=== PATIENT | female | born 1965 | race Caucasian/White ===

== ENCOUNTER 2016-08-15 20:20 | Emergency (ER) | payer OTHER ==
[~2016-08-15 20:20] MED LIST: BACITRACIN TP; BENADRYL25 MG PO; CALCIUM 600 +1 EAC7 PO; CELEXA20 MG PO; COLACE100 MG PO; COREG25 MG PO; CYANOCOBAL1000 MCG/M INJ; FOLIC ACID1 MG PO; GABAPENTIN800 MG PO; IRON325 M1 PO; JUVEN PACKET1 EACH PO; KLONOPIN1 MG PO; LACTINEX CHEWA1 EACH PO; LOVENOX40 MG/0.4 SC; MAGOX 400400 MG PO; MILK OF MA400 MG/5 M PO; MS CONTIN30 MG PO; MULTIVITAMINS1 EAC2 PO; NYSTOP60 GM TOP; PANTOPRAZOLE SO40 MG PO; PERCOCET 10-321 EACH PO; SENSI CARE PET113 GM TOP
[2016-08-15 21:58] LABS: BASO % 0.5 % (0.1-1.2); EOS # 0.5 10_X3_uL (0.0-0.4); EOS % 5.4 % (0.7-5.8); GRAN # 5.8 10_X3_uL (1.6-6.1); GRAN % 68.5 % (34.0-71.1); HEMATOCRIT 30.5 % (34-45); HEMOGLOBIN 9.8 g/dL (11.2-15.7); LYMPH # 1.7 10_X3_uL (1.2-3.7); LYMPH % 20.1 % (19.3-51.7); MEAN CORPUSCULAR HEMOGLOBIN 28.2 pg (27.0-33.0); MEAN CORPUSCULAR HGB CONC 32.1 g/dL (32.0-36.0); MEAN CORPUSCULAR VOLUME 87.9 fL (79-95); MEAN PLATELET VOLUME 9.2 fl (7.5-11.5); MONO # 0.5 10_X3_uL (0.2-0.9); MONO % 5.5 % (4.7-12.5); PLATELET COUNT 282 x10_3/uL (182-369); RED BLOOD COUNT 3.47 x10_6/uL (3.9-5.2); RED CELL DISTRIBUTION WIDTH 17.3 % (11.7-14.4); WHITE BLOOD COUNT 8.4 x10_3/uL (4.0-10.0)
[2016-08-15 22:12] LABS: ALBUMIN 3.4 gm/dL (3.4-5.0); ALKALINE PHOSPHATASE 327 U/L (50-136); ALT/SGPT 44 U/L (3.5-33.9); AST/SGOT 50 U/L (7.04-26.96); BILIRUBIN,TOTAL 0.38 mg/dL (0.0-1.0); BLOOD UREA NITROGEN 9 mg/dL (7-18); CALCIUM 8.6 mg/dL (8.7-10.7); CARBON DIOXIDE 25 mmol/L (21-32); CREATININE < 0.5 mg/dL (0.6-1.3); GLUCOSE,RANDOM 116 mg/dL (70-99); POTASSIUM 3.9 mmol/L (3.5-5.1); SODIUM 139 mmol/L (136-145); TOTAL PROTEIN 7.1 gm/dL (6.4-8.2)
== END 2016-08-16 00:15 | disposition home or self-care (01) ==
LOC: ER 20:20
PROVIDERS: Emergency Medicine
DX: L03.115 Cellulitis of right lower limb (principal); S81.001A Unspecified open wound, right knee, initial encounter; Z98.890 Other specified postprocedural states; Z86.14 Personal history of Methicillin resistant Staphylococcus aureus infection; Z86.19 Personal history of other infectious and parasitic diseases; Z89.222 Acquired absence of left upper limb above elbow; F17.210 Nicotine dependence, cigarettes, uncomplicated; Z88.2 Allergy status to sulfonamides; Z88.8 Allergy status to other drugs, medicaments and biological substances; Z79.899 Other long term (current) drug therapy
CPT/HCPCS: 36415; 73552; 73590; 73610; 80053; 85025; 96372; 99283-25; 99284

== ENCOUNTER 2016-11-12 12:26 | Inpatient (IN) | payer OTHER ==
[~2016-11-12] VITALS: Ht 165.1 cm; Wt 123.0 kg
[2016-11-12 13:26] LABS: BASO % 0.1 % (0.1-1.2); EOS % 0.1 % (0.7-5.8); GRAN # 22.8 10_X3_uL (1.6-6.1); GRAN % 91.6 % (34.0-71.1); HEMATOCRIT 34.4 % (34-45); HEMOGLOBIN 11.8 g/dL (11.2-15.7); LYMPH # 0.9 10_X3_uL (1.2-3.7); LYMPH % 3.4 % (19.3-51.7); MEAN CORPUSCULAR HEMOGLOBIN 29.4 pg (27.0-33.0); MEAN CORPUSCULAR HGB CONC 34.3 g/dL (32.0-36.0); MEAN CORPUSCULAR VOLUME 85.8 fL (79-95); MEAN PLATELET VOLUME 10.1 fl (7.5-11.5); MONO # 1.2 10_X3_uL (0.2-0.9); MONO % 4.8 % (4.7-12.5); PLATELET COUNT 246 x10_3/uL (182-369); RED BLOOD COUNT 4.01 x10_6/uL (3.9-5.2); RED CELL DISTRIBUTION WIDTH 14.7 % (11.7-14.4)
[2016-11-12 13:33] LABS: WHITE BLOOD COUNT 24.9 x10_3/uL (4.0-10.0)
[2016-11-12 13:36] LABS: URINE BILIRUBIN NEGATIVE (NEGATIVE); URINE BLOOD 2+ (NEGATIVE); URINE GLUCOSE (UA) NORMAL (NORMAL); URINE KETONE NEGATIVE (NEGATIVE); URINE LEUKOCYTE ESTERASE NEGATIVE (NEGATIVE); URINE NITRATE NEGATIVE (NEGATIVE); URINE PROTEIN 2+ (NEGATIVE); UROBILINOGEN NORMAL mg/dL (<1.0)
[2016-11-12 13:53] LABS: ALKALINE PHOSPHATASE 173 U/L (50-136); ALT/SGPT 17 U/L (3.5-33.9); AST/SGOT 23 U/L (7.04-26.96); BILIRUBIN,TOTAL 0.51 mg/dL (0.0-1.0); BLOOD UREA NITROGEN 11 mg/dL (7-18); CALCIUM 8.3 mg/dL (8.7-10.7); CARBON DIOXIDE 18 mmol/L (21-32); CREATININE 0.5 mg/dL (0.6-1.3); GLUCOSE,RANDOM 141 mg/dL (70-99); SODIUM 129 mmol/L (136-145); TOTAL PROTEIN 7.3 gm/dL (6.4-8.2)
[2016-11-12 13:57] LABS: URINE RBC 0-5 /[HPF] (0-2); URINE WBC 0-5 /[HPF] (0-5)
[2016-11-12 13:58] LABS: URINE BACTERIA TRACE (NONE SEEN); URINE SQUAMOUS EPITHELIAL CELL 0-10 /[HPF] (NONE SEEN)
[2016-11-12 14:01] LABS: POTASSIUM 2.8 mmol/L (3.5-5.1)
[2016-11-12 15:31] LABS: ERYTHROCYTE SEDIMENTATION RATE 80 mm/hr (0-20)
[2016-11-12 22:29] LABS: ARTERIAL BLD GAS O2 SATURATION 96.8 % (94-98); ARTERIAL BLOOD GAS HCO3 22.8 mmol/L (22-26); ARTERIAL BLOOD GAS PCO2 31.7 mmHg (32-45); ARTERIAL BLOOD GAS pH 7.47 (7.35-7.45)
[2016-11-13 06:49] LABS: BASO % 0.1 % (0.1-1.2); EOS # 0.1 10_X3_uL (0.0-0.4); EOS % 0.4 % (0.7-5.8); GRAN # 20.2 10_X3_uL (1.6-6.1); GRAN % 91.3 % (34.0-71.1); HEMATOCRIT 28.2 % (34-45); HEMOGLOBIN 9.6 g/dL (11.2-15.7); LYMPH # 0.8 10_X3_uL (1.2-3.7); LYMPH % 3.7 % (19.3-51.7); MEAN CORPUSCULAR HEMOGLOBIN 29.4 pg (27.0-33.0); MEAN CORPUSCULAR VOLUME 86.5 fL (79-95); MEAN PLATELET VOLUME 9.8 fl (7.5-11.5); MONO % 4.5 % (4.7-12.5); PLATELET COUNT 327 x10_3/uL (182-369); RED BLOOD COUNT 3.26 x10_6/uL (3.9-5.2); RED CELL DISTRIBUTION WIDTH 14.2 % (11.7-14.4)
[2016-11-13 07:04] LABS: BLOOD UREA NITROGEN 8 mg/dL (7-18); CALCIUM 7.9 mg/dL (8.7-10.7); CARBON DIOXIDE 22 mmol/L (21-32); CREATININE 0.5 mg/dL (0.6-1.3); GLUCOSE,RANDOM 109 mg/dL (70-99); SODIUM 137 mmol/L (136-145)
[2016-11-13 07:13] LABS: POTASSIUM 2.5 mmol/L (3.5-5.1)
[2016-11-13 07:14] LABS: WHITE BLOOD COUNT 22.1 x10_3/uL (4.0-10.0)
[2016-11-13 20:21] LABS: URINE BILIRUBIN NEGATIVE (NEGATIVE); URINE BLOOD TRACE (NEGATIVE); URINE GLUCOSE (UA) NORMAL (NORMAL); URINE KETONE NEGATIVE (NEGATIVE); URINE LEUKOCYTE ESTERASE TRACE (NEGATIVE); URINE NITRATE NEGATIVE (NEGATIVE); URINE PROTEIN 1+ (NEGATIVE); UROBILINOGEN NORMAL mg/dL (<1.0)
[2016-11-13 20:27] LABS: URINE RBC 0-5 /[HPF] (0-2); URINE WBC 0-5 /[HPF] (0-5)
[2016-11-13 20:33] LABS: MAGNESIUM 1.6 mg/dL (1.8-2.4); POTASSIUM 3.2 mmol/L (3.5-5.1)
[2016-11-14 06:46] LABS: BASO % 0.2 % (0.1-1.2); EOS # 0.4 10_X3_uL (0.0-0.4); EOS % 2.2 % (0.7-5.8); GRAN # 16.3 10_X3_uL (1.6-6.1); GRAN % 86.6 % (34.0-71.1); HEMOGLOBIN 9.7 g/dL (11.2-15.7); LYMPH # 1.3 10_X3_uL (1.2-3.7); LYMPH % 6.6 % (19.3-51.7); MEAN CORPUSCULAR HEMOGLOBIN 29.2 pg (27.0-33.0); MEAN CORPUSCULAR HGB CONC 33.4 g/dL (32.0-36.0); MEAN CORPUSCULAR VOLUME 87.3 fL (79-95); MEAN PLATELET VOLUME 9.6 fl (7.5-11.5); MONO # 0.8 10_X3_uL (0.2-0.9); MONO % 4.4 % (4.7-12.5); PLATELET COUNT 323 x10_3/uL (182-369); RED BLOOD COUNT 3.32 x10_6/uL (3.9-5.2); RED CELL DISTRIBUTION WIDTH 14.9 % (11.7-14.4); WHITE BLOOD COUNT 18.9 x10_3/uL (4.0-10.0)
[2016-11-14 07:16] LABS: ALBUMIN 2.4 gm/dL (3.4-5.0); ALKALINE PHOSPHATASE 145 U/L (50-136); ALT/SGPT 30 U/L (3.5-33.9); AST/SGOT 50 U/L (7.04-26.96); BILIRUBIN,TOTAL 0.22 mg/dL (0.0-1.0); BLOOD UREA NITROGEN 9 mg/dL (7-18); CALCIUM 7.9 mg/dL (8.7-10.7); CARBON DIOXIDE 20 mmol/L (21-32); CREATININE 0.6 mg/dL (0.6-1.3); GLUCOSE,RANDOM 102 mg/dL (70-99); POTASSIUM 3.7 mmol/L (3.5-5.1); SODIUM 136 mmol/L (136-145); TOTAL PROTEIN 6.4 gm/dL (6.4-8.2)
[2016-11-15 07:16] LABS: HEMATOCRIT 29.2 % (34-45); HEMOGLOBIN 9.4 g/dL (11.2-15.7); MEAN CORPUSCULAR HEMOGLOBIN 28.7 pg (27.0-33.0); MEAN CORPUSCULAR HGB CONC 32.2 g/dL (32.0-36.0); MEAN CORPUSCULAR VOLUME 89.3 fL (79-95); MEAN PLATELET VOLUME 9.4 fl (7.5-11.5); RED BLOOD COUNT 3.27 x10_6/uL (3.9-5.2); RED CELL DISTRIBUTION WIDTH 14.8 % (11.7-14.4); WHITE BLOOD COUNT 14.7 x10_3/uL (4.0-10.0)
[2016-11-15 07:23] LABS: ALBUMIN 2.4 gm/dL (3.4-5.0); ALKALINE PHOSPHATASE 338 U/L (50-136); ALT/SGPT 35 U/L (3.5-33.9); AST/SGOT 72 U/L (7.04-26.96); BILIRUBIN,TOTAL 0.27 mg/dL (0.0-1.0); CARBON DIOXIDE 22 mmol/L (21-32); CREATININE 0.6 mg/dL (0.6-1.3); GLUCOSE,RANDOM 107 mg/dL (70-99); MAGNESIUM 1.6 mg/dL (1.8-2.4); POTASSIUM 3.7 mmol/L (3.5-5.1); SODIUM 138 mmol/L (136-145); TOTAL PROTEIN 6.2 gm/dL (6.4-8.2)
[2016-11-15 07:24] LABS: BLOOD UREA NITROGEN 5 mg/dL (7-18)
[2016-11-16 04:46] LABS: HEMATOCRIT 29.5 % (34-45); HEMOGLOBIN 9.7 g/dL (11.2-15.7); MEAN CORPUSCULAR HGB CONC 32.9 g/dL (32.0-36.0); MEAN CORPUSCULAR VOLUME 88.3 fL (79-95); MEAN PLATELET VOLUME 9.1 fl (7.5-11.5); RED BLOOD COUNT 3.34 x10_6/uL (3.9-5.2); RED CELL DISTRIBUTION WIDTH 14.9 % (11.7-14.4); WHITE BLOOD COUNT 12.9 x10_3/uL (4.0-10.0)
[2016-11-16 05:04] LABS: ALBUMIN 2.5 gm/dL (3.4-5.0); ALKALINE PHOSPHATASE 337 U/L (50-136); ALT/SGPT 28 U/L (3.5-33.9); AST/SGOT 41 U/L (7.04-26.96); BILIRUBIN,TOTAL 0.37 mg/dL (0.0-1.0); BLOOD UREA NITROGEN 6 mg/dL (7-18); CARBON DIOXIDE 23 mmol/L (21-32); CREATININE 0.5 mg/dL (0.6-1.3); GLUCOSE,RANDOM 106 mg/dL (70-99); POTASSIUM 3.6 mmol/L (3.5-5.1); SODIUM 137 mmol/L (136-145); TOTAL PROTEIN 6.6 gm/dL (6.4-8.2)
[2016-11-17 05:24] LABS: HEMATOCRIT 30.5 % (34-45); MEAN CORPUSCULAR HEMOGLOBIN 28.9 pg (27.0-33.0); MEAN CORPUSCULAR HGB CONC 32.8 g/dL (32.0-36.0); MEAN CORPUSCULAR VOLUME 88.2 fL (79-95); MEAN PLATELET VOLUME 9.1 fl (7.5-11.5); RED BLOOD COUNT 3.46 x10_6/uL (3.9-5.2); RED CELL DISTRIBUTION WIDTH 14.7 % (11.7-14.4); WHITE BLOOD COUNT 10.9 x10_3/uL (4.0-10.0)
[2016-11-17 05:36] LABS: ALBUMIN 2.3 gm/dL (3.4-5.0); ALKALINE PHOSPHATASE 321 U/L (50-136); ALT/SGPT 21 U/L (3.5-33.9); AST/SGOT 22 U/L (7.04-26.96); BILIRUBIN,TOTAL 0.34 mg/dL (0.0-1.0); CALCIUM 8.2 mg/dL (8.7-10.7); CARBON DIOXIDE 26 mmol/L (21-32); CREATININE < 0.5 mg/dL (0.6-1.3); GLUCOSE,RANDOM 115 mg/dL (70-99); POTASSIUM 3.8 mmol/L (3.5-5.1); SODIUM 138 mmol/L (136-145); TOTAL PROTEIN 6.8 gm/dL (6.4-8.2)
[2016-11-17 05:37] LABS: BLOOD UREA NITROGEN 4 mg/dL (7-18)
[2016-11-18 06:40] LABS: BASO % 0.5 % (0.1-1.2); EOS # 0.5 10_X3_uL (0.0-0.4); EOS % 5.3 % (0.7-5.8); GRAN # 5.7 10_X3_uL (1.6-6.1); GRAN % 65.6 % (34.0-71.1); HEMATOCRIT 31.1 % (34-45); LYMPH # 1.8 10_X3_uL (1.2-3.7); LYMPH % 20.4 % (19.3-51.7); MEAN CORPUSCULAR HEMOGLOBIN 28.9 pg (27.0-33.0); MEAN CORPUSCULAR HGB CONC 32.2 g/dL (32.0-36.0); MEAN CORPUSCULAR VOLUME 89.9 fL (79-95); MEAN PLATELET VOLUME 9.2 fl (7.5-11.5); MONO # 0.7 10_X3_uL (0.2-0.9); MONO % 8.2 % (4.7-12.5); PLATELET COUNT 409 x10_3/uL (182-369); RED BLOOD COUNT 3.46 x10_6/uL (3.9-5.2); RED CELL DISTRIBUTION WIDTH 14.7 % (11.7-14.4); WHITE BLOOD COUNT 8.6 x10_3/uL (4.0-10.0)
[2016-11-18 06:57] LABS: ALBUMIN 2.4 gm/dL (3.4-5.0); ALKALINE PHOSPHATASE 264 U/L (50-136); ALT/SGPT 14 U/L (3.5-33.9); AST/SGOT 14 U/L (7.04-26.96); BILIRUBIN,TOTAL 0.26 mg/dL (0.0-1.0); BLOOD UREA NITROGEN 5 mg/dL (7-18); CALCIUM 8.3 mg/dL (8.7-10.7); CARBON DIOXIDE 26 mmol/L (21-32); CREATININE 0.5 mg/dL (0.6-1.3); GLUCOSE,RANDOM 134 mg/dL (70-99); POTASSIUM 3.8 mmol/L (3.5-5.1); SODIUM 134 mmol/L (136-145); TOTAL PROTEIN 6.9 gm/dL (6.4-8.2)
== END 2016-11-19 12:24 | disposition home or self-care (01) | DRG 872 ==
LOC: ER 12:26 → MS 15:24
PROVIDERS: Internal Medicine; ADMIT Family Medicine
PROC: 05H533Z Insertion of Infusion Device into Right Subclavian Vein, Percutaneous Approach (ICD-10-PCS; principal; 2016-11-17)
DX: A41.9 Sepsis, unspecified organism (principal); L03.115 Cellulitis of right lower limb; E72.20 Disorder of urea cycle metabolism, unspecified; K52.9 Noninfective gastroenteritis and colitis, unspecified; R19.7 Diarrhea, unspecified; M79.3 Panniculitis, unspecified; E87.6 Hypokalemia; D64.9 Anemia, unspecified; Z89.202 Acquired absence of left upper limb, unspecified level; Z86.19 Personal history of other infectious and parasitic diseases; I87.2 Venous insufficiency (chronic) (peripheral); Z87.81 Personal history of (healed) traumatic fracture; J44.9 Chronic obstructive pulmonary disease, unspecified; R21 Rash and other nonspecific skin eruption; Z79.899 Other long term (current) drug therapy; Z79.891 Long term (current) use of opiate analgesic; Z86.14 Personal history of Methicillin resistant Staphylococcus aureus infection; F17.210 Nicotine dependence, cigarettes, uncomplicated; Z88.2 Allergy status to sulfonamides; Z88.8 Allergy status to other drugs, medicaments and biological substances; Z82.49 Family history of ischemic heart disease and other diseases of the circulatory system; Z87.898 Personal history of other specified conditions
CPT/HCPCS: 36415; 36561; 36582; 36600; 51702; 71010; 73590; 73700; 78315; 80048; 80053; 80202; 81001; 82140; 82803; 83605; 83735; 84132; 84588; 85025; 85651; 87040; 87045; 87324; 93971; 94664; 96365; 96367; 96375; 99070; 99284; 99284-25; A9503; G0328-QW; J2704; J3370; J3480; J7050; Q0169

== ENCOUNTER 2016-11-12 12:26 | Emergency (ER) | payer OTHER | END 2016-11-12 15:24 | disposition other institution (70) | LOC: ER 12:26 | DX: L03.115 Cellulitis of right lower limb (principal); R50.9 Fever, unspecified; K21.9 Gastro-esophageal reflux disease without esophagitis; Z89.202 Acquired absence of left upper limb, unspecified level; Z79.899 Other long term (current) drug therapy; Z79.891 Long term (current) use of opiate analgesic | CPT/HCPCS: 51702; 99284; 99284-25 ==

== ENCOUNTER 2017-03-01 15:40 | Inpatient (IN) | payer OTHER ==
[~2017-03-01] VITALS: Ht 160 cm; Wt 126.0 kg
[2017-03-01 18:46] LABS: BASO # 0.1 10_X3_uL (0.0-0.1); BASO % 0.5 % (0.1-1.2); EOS # 0.4 10_X3_uL (0.0-0.4); EOS % 3.7 % (0.7-5.8); GRAN % 65.3 % (34.0-71.1); HEMATOCRIT 36.1 % (34-45); HEMOGLOBIN 11.7 g/dL (11.2-15.7); LYMPH # 2.6 10_X3_uL (1.2-3.7); LYMPH % 23.9 % (19.3-51.7); MEAN CORPUSCULAR HEMOGLOBIN 29.6 pg (27.0-33.0); MEAN CORPUSCULAR HGB CONC 32.4 g/dL (32.0-36.0); MEAN CORPUSCULAR VOLUME 91.4 fL (79-95); MEAN PLATELET VOLUME 9.9 fl (7.5-11.5); MONO # 0.7 10_X3_uL (0.2-0.9); MONO % 6.6 % (4.7-12.5); PLATELET COUNT 254 x10_3/uL (182-369); RED BLOOD COUNT 3.95 x10_6/uL (3.9-5.2); RED CELL DISTRIBUTION WIDTH 13.9 % (11.7-14.4); WHITE BLOOD COUNT 10.7 x10_3/uL (4.0-10.0)
[2017-03-01 19:00] LABS: ALBUMIN 3.8 gm/dL (3.4-5.0); ALKALINE PHOSPHATASE 148 U/L (50-136); ALT/SGPT 6 U/L (3.5-33.9); AST/SGOT 16 U/L (7.04-26.96); BILIRUBIN,TOTAL 0.17 mg/dL (0.0-1.0); BLOOD UREA NITROGEN 12 mg/dL (7-18); CALCIUM 8.8 mg/dL (8.7-10.7); CARBON DIOXIDE 25 mmol/L (21-32); CREATININE 0.6 mg/dL (0.6-1.3); GLUCOSE,RANDOM 136 mg/dL (70-99); POTASSIUM 3.6 mmol/L (3.5-5.1); SODIUM 138 mmol/L (136-145); TOTAL PROTEIN 7.8 gm/dL (6.4-8.2)
[2017-03-02 06:53] LABS: BASO # 0.1 10_X3_uL (0.0-0.1); BASO % 0.7 % (0.1-1.2); EOS # 0.5 10_X3_uL (0.0-0.4); EOS % 6.7 % (0.7-5.8); GRAN # 4.2 10_X3_uL (1.6-6.1); GRAN % 57.7 % (34.0-71.1); HEMATOCRIT 34.3 % (34-45); HEMOGLOBIN 11.1 g/dL (11.2-15.7); LYMPH % 27.1 % (19.3-51.7); MEAN CORPUSCULAR HEMOGLOBIN 29.9 pg (27.0-33.0); MEAN CORPUSCULAR HGB CONC 32.4 g/dL (32.0-36.0); MEAN CORPUSCULAR VOLUME 92.5 fL (79-95); MEAN PLATELET VOLUME 10.1 fl (7.5-11.5); MONO # 0.6 10_X3_uL (0.2-0.9); MONO % 7.8 % (4.7-12.5); PLATELET COUNT 218 x10_3/uL (182-369); RED BLOOD COUNT 3.71 x10_6/uL (3.9-5.2); WHITE BLOOD COUNT 7.3 x10_3/uL (4.0-10.0)
[2017-03-02 07:03] LABS: BLOOD UREA NITROGEN 11 mg/dL (7-18); CALCIUM 8.7 mg/dL (8.7-10.7); CARBON DIOXIDE 26 mmol/L (21-32); CREATININE 0.5 mg/dL (0.6-1.3); GLUCOSE,RANDOM 89 mg/dL (70-99); SODIUM 140 mmol/L (136-145)
== END 2017-03-02 11:35 | disposition short-term general hospital (02) | DRG 540 ==
LOC: ER 15:40 → MS 21:45 → UNDODEPER 03-02 22:58
PROVIDERS: Emergency Medicine; ADMIT Internal Medicine
DX: M86.8X7 Other osteomyelitis, ankle and foot (principal); T84.59XA Infection and inflammatory reaction due to other internal joint prosthesis, initial encounter; F32.9 Major depressive disorder, single episode, unspecified; F41.9 Anxiety disorder, unspecified; G89.29 Other chronic pain; Z86.73 Personal history of transient ischemic attack (TIA), and cerebral infarction without residual deficits; V89.2XXD Person injured in unspecified motor-vehicle accident, traffic, subsequent encounter; Z89.222 Acquired absence of left upper limb above elbow; Z86.14 Personal history of Methicillin resistant Staphylococcus aureus infection; Z86.19 Personal history of other infectious and parasitic diseases; Z88.2 Allergy status to sulfonamides; Z88.8 Allergy status to other drugs, medicaments and biological substances; Z82.49 Family history of ischemic heart disease and other diseases of the circulatory system; F17.210 Nicotine dependence, cigarettes, uncomplicated; Z79.899 Other long term (current) drug therapy; Z79.891 Long term (current) use of opiate analgesic
CPT/HCPCS: 36415; 73700; 80048; 80053; 83605; 85025; 87040; 87070; 87186; 96365; 96366; 96372; 99284; 99284-25; J3370; J7050